=== PATIENT | female | born 1950 | race Caucasian/White ===

== ENCOUNTER 2017-06-11 08:23 | Day surgery (SDC) | payer OTHER ==
[2017-06-06 12:28] VITALS: BMI 23.0
[2017-06-11] MEDS ORDERED: PROPOFOL 20 ML ONE ×2 (08:25)
[2017-06-11] MEDS ORDERED: LIDOCAINE HCL/PF 2% SDV 5ML VIAL ONE (08:25)
[2017-06-11 08:44] VITALS: TEMP 98.2
[2017-06-11 11:07] VITALS: BP 110/56; PULSE 66
== END 2017-06-11 11:11 | disposition home or self-care (01) ==
LOC: FASU-ENDO 08:23
PROVIDERS: ATTEND Internal Medicine Gastroenterology
PROC: 0DJD8ZZ Inspection of Lower Intestinal Tract, Via Natural or Artificial Opening Endoscopic (ICD-10-PCS; principal; 2017-06-11 09:58)
DX: Z12.11 Encounter for screening for malignant neoplasm of colon (principal)